=== PATIENT | female | born 1945 | race Caucasian/White ===

== ENCOUNTER → 2016-04-07 | Outpatient (CLI) | payer MEDICARE, OTHER ==
[2015-02-18 12:23] VITALS: BP 138/78
[~2016-04-07] MED LIST: CALCIUM CARBONA1 TA2 PO; PREMARIN 0.60.625 M1 PO; VITAMIN C500 MG PO
== END ==
LOC: LAB 10:24
DX: Z12.11 Encounter for screening for malignant neoplasm of colon (principal)

== ENCOUNTER → 2017-03-22 | Outpatient (CLI) | payer MEDICARE ==
[2015-02-18 12:23] VITALS: BP 138/78
[2017-03-22 10:02] LABS: EOS # 0.4 (0.04-0.40); EOS % 4.6 % (1.0-5.0); HEMATOCRIT 42.5 % (37.0-47.0); LYMPH# 1.3 (1.50-4.00); MEAN CELL VOLUME 91 fl (78-100); MEAN CORPUSCULAR HEMOGLOBIN 30 pg (27-31); MEAN CORPUSCULAR HGB CONC 33 g/dL (33-37); MEAN PLATELET VOLUME 10.6 fl (7.4-10.4); MONO # 0.9 (0.20-0.80); NEU # 6.7 (1.40-6.50); PLATELET COUNT 273 K/mm3 (130-400); RED BLOOD COUNT 4.66 M/mm3 (4.10-5.30); RED CELL DISTRIBUTION WIDTH 12.8 % (11.5-14.5); WHITE BLOOD COUNT 9.4 K/mm3 (4.8-10.8)
[2017-03-22 10:15] LABS: POTASSIUM 4.2 mmol/L (3.6-5.0)
[2017-03-22 10:29] LABS: ALBUMIN 4.1 g/dL (3.5-5.0); BUN/CREATININE RATIO 22.1 (6.0-26.0); CALCIUM 9.8 mg/dL (8.4-10.2); TOTAL BILIRUBIN 0.8 mg/dL (0.2-1.3); TOTAL PROTEIN 7.3 g/dL (6.3-8.2)
[2017-03-22 11:06] LABS: ERYTHROCYTE SEDIMENTATION RATE 11 mm/hr (0-30)
== END ==
LOC: LAB 09:49
PROVIDERS: Internal Medicine
DX: N80.8 Other endometriosis (principal); E78.2 Mixed hyperlipidemia; I34.1 Nonrheumatic mitral (valve) prolapse

== ENCOUNTER → 2017-12-31 | Outpatient (CLI) | payer MEDICARE ==
[2015-02-18 12:23] VITALS: BP 138/78
[2017-12-31 17:36] LABS: URINE APPEARANCE HAZY; URINE BILIRUBIN NEGATIVE (NEGATIVE); URINE BLOOD NEGATIVE (NEGATIVE); URINE COLOR YELLOW; URINE GLUCOSE NEGATIVE (NEGATIVE); URINE KETONE NEGATIVE (NEGATIVE); URINE LEUKOCYTE ESTERASE 1+ (NEGATIVE); URINE NITRATE NEGATIVE (NEGATIVE); URINE PROTEIN(semi-quant) TRACE mg/dL (NEGATIVE); URINE UROBILINOGEN NORMAL (NORMAL); URINE WBC 16-30 /hpf (0-3)
== END ==
LOC: LAB 09:41
PROVIDERS: Internal Medicine
DX: N39.0 Urinary tract infection, site not specified (principal)

== ENCOUNTER → 2018-04-04 | Outpatient (CLI) | payer MEDICARE ==
[2015-02-18 12:23] VITALS: BP 138/78
[2018-04-04 10:03] LABS: EOS # 0.3 (0.04-0.40); EOS % 3.8 % (1.0-5.0); HEMOGLOBIN 13.5 g/dL (12.5-16.0); LYMPH# 1.6 (1.50-4.00); MEAN CELL VOLUME 92 fl (78-100); MEAN CORPUSCULAR HEMOGLOBIN 30 pg (27-31); MEAN CORPUSCULAR HGB CONC 32 g/dL (33-37); MEAN PLATELET VOLUME 11.2 fl (7.4-10.4); MONO # 0.7 (0.20-0.80); NEU # 4.8 (1.40-6.50); PLATELET COUNT 272 K/mm3 (130-400); RED BLOOD COUNT 4.57 M/mm3 (4.10-5.30); RED CELL DISTRIBUTION WIDTH 13.3 % (11.5-14.5); WHITE BLOOD COUNT 7.4 K/mm3 (4.8-10.8)
[2018-04-04 10:08] LABS: ALBUMIN 4.3 g/dL (3.5-5.0); POTASSIUM 4.2 mmol/L (3.6-5.0); TOTAL BILIRUBIN 0.4 mg/dL (0.2-1.3); TOTAL PROTEIN 7.3 g/dL (6.3-8.2)
[2018-04-04 11:36] LABS: ERYTHROCYTE SEDIMENTATION RATE 9 mm/hr (0-30)
== END ==
LOC: LAB 09:20
PROVIDERS: Internal Medicine
DX: Z12.11 Encounter for screening for malignant neoplasm of colon (principal); I34.1 Nonrheumatic mitral (valve) prolapse; E78.2 Mixed hyperlipidemia; K90.9 Intestinal malabsorption, unspecified

== ENCOUNTER → 2018-04-30 | Outpatient (CLI) | payer MEDICARE ==
[2015-02-18 12:23] VITALS: BP 138/78
== END ==
LOC: LAB 08:36
DX: Z12.11 Encounter for screening for malignant neoplasm of colon (principal)

== ENCOUNTER → 2018-06-28 | Outpatient (CLI) | payer MEDICARE ==
[~2018-06-28] VITALS: Ht 170.2 cm; Wt 65.9 kg
[2018-06-28 14:50] LABS: EOS # 0.2 (0.04-0.40); EOS % 3.3 % (1.0-5.0); HEMATOCRIT 41.3 % (37.0-47.0); HEMOGLOBIN 13.2 g/dL (12.5-16.0); LYMPH# 1.5 (1.50-4.00); MEAN CELL VOLUME 92 fl (78-100); MEAN CORPUSCULAR HEMOGLOBIN 29 pg (27-31); MEAN CORPUSCULAR HGB CONC 32 g/dL (33-37); MEAN PLATELET VOLUME 11.1 fl (7.4-10.4); MONO # 0.5 (0.20-0.80); NEU # 4.6 (1.40-6.50); PLATELET COUNT 255 K/mm3 (130-400); RED BLOOD COUNT 4.49 M/mm3 (4.10-5.30); RED CELL DISTRIBUTION WIDTH 12.7 % (11.5-14.5); WHITE BLOOD COUNT 6.9 K/mm3 (4.8-10.8)
[2018-06-28 15:13] LABS: ALBUMIN 4.2 g/dL (3.5-5.0); AST-SGOT 21 U/L (14-36); CARBON DIOXIDE 29 mmol/L (22-30); GLUCOSE 116 mg/dL (65-105); POTASSIUM 3.9 mmol/L (3.6-5.0); SODIUM 138 mmol/L (137-145); TOTAL BILIRUBIN 0.3 mg/dL (0.2-1.3); TOTAL PROTEIN 7.2 g/dL (6.3-8.2)
[2018-06-28 15:15] VITALS: BP 138/68
[2018-06-28 15:34] LABS: URINE APPEARANCE CLEAR; URINE BILIRUBIN NEGATIVE (NEGATIVE); URINE BLOOD NEGATIVE (NEGATIVE); URINE COLOR YELLOW; URINE GLUCOSE NEGATIVE (NEGATIVE); URINE KETONE NEGATIVE (NEGATIVE); URINE LEUKOCYTE ESTERASE 1+ (NEGATIVE); URINE NITRATE NEGATIVE (NEGATIVE); URINE PROTEIN(semi-quant) NEGATIVE (NEGATIVE); URINE UROBILINOGEN NORMAL (NORMAL)
[2018-06-28 16:12] LABS: ALT/SGPT < 3 U/L (9-52)
[2018-06-28 16:22] LABS: ERYTHROCYTE SEDIMENTATION RATE 8 mm/hr (0-30)
== END ==
LOC: AMSURD 14:26
PROVIDERS: Internal Medicine
DX: I16.0 Hypertensive urgency (principal)

== ENCOUNTER → 2018-10-24 | Outpatient (CLI) | payer MEDICARE ==
[2018-06-28 15:15] VITALS: BP 138/68
== END ==
LOC: RAD 15:15
DX: S43.491A Other sprain of right shoulder joint, initial encounter (principal); M19.011 Primary osteoarthritis, right shoulder

== ENCOUNTER → 2019-04-29 | Outpatient (CLI) | payer MEDICARE ==
[2018-06-28 15:15] VITALS: BP 138/68
[2019-04-29 10:11] LABS: BASO # 0.1 (0.02-0.10); EOS # 0.5 (0.04-0.40); EOS % 5.9 % (1.0-5.0); HEMATOCRIT 42.4 % (37.0-47.0); HEMOGLOBIN 13.6 g/dL (12.5-16.0); LYMPH# 1.3 (1.50-4.00); MEAN CELL VOLUME 92 fl (78-100); MEAN CORPUSCULAR HEMOGLOBIN 29 pg (27-31); MEAN CORPUSCULAR HGB CONC 32 g/dL (33-37); MONO # 0.7 (0.20-0.80); NEU # 5.3 (1.40-6.50); PLATELET COUNT 269 K/mm3 (130-400); RED BLOOD COUNT 4.63 M/mm3 (4.10-5.30); WHITE BLOOD COUNT 7.9 K/mm3 (4.8-10.8)
[2019-04-29 10:15] LABS: ALBUMIN 4.3 g/dL (3.4-4.8); POTASSIUM 4.3 mmol/L (3.5-5.1)
[2019-04-29 10:16] LABS: CALCIUM 9.9 mg/dL (8.3-10.5)
[2019-04-29 10:18] LABS: TOTAL PROTEIN 7.1 g/dL (6.2-8.1)
[2019-04-29 10:19] LABS: TOTAL BILIRUBIN 0.5 mg/dL (0.2-1.2)
[2019-04-29 11:22] LABS: ERYTHROCYTE SEDIMENTATION RATE 7 mm/hr (0-30)
== END ==
LOC: LAB 09:48
PROVIDERS: Internal Medicine
DX: Z12.11 Encounter for screening for malignant neoplasm of colon (principal); E78.2 Mixed hyperlipidemia; K90.9 Intestinal malabsorption, unspecified; I34.1 Nonrheumatic mitral (valve) prolapse

== ENCOUNTER → 2019-05-14 | Outpatient (CLI) | payer MEDICARE ==
[2018-06-28 15:15] VITALS: BP 138/68
== END ==
LOC: LAB 10:56
DX: Z12.11 Encounter for screening for malignant neoplasm of colon (principal); E78.2 Mixed hyperlipidemia; I34.1 Nonrheumatic mitral (valve) prolapse

== ENCOUNTER → 2020-05-04 | Outpatient (CLI) | payer MEDICARE ==
[2018-06-28 15:15] VITALS: BP 138/68
[2020-05-04 09:12] LABS: EOS # 0.2 (0.04-0.40); HEMATOCRIT 42.3 % (37.0-47.0); HEMOGLOBIN 13.5 g/dL (12.5-16.0); LYMPH# 1.3 (1.50-4.00); MEAN CELL VOLUME 93 fl (78-100); MEAN CORPUSCULAR HEMOGLOBIN 30 pg (27-31); MEAN CORPUSCULAR HGB CONC 32 g/dL (33-37); MEAN PLATELET VOLUME 10.9 fl (7.4-10.4); MONO # 0.7 (0.20-0.80); NEU # 3.5 (1.40-6.50); PLATELET COUNT 259 K/mm3 (130-400); RED BLOOD COUNT 4.54 M/mm3 (4.10-5.30); RED CELL DISTRIBUTION WIDTH 12.5 % (11.5-14.5); WHITE BLOOD COUNT 5.7 K/mm3 (4.8-10.8)
[2020-05-04 09:43] LABS: ALBUMIN 4.2 g/dL (3.4-4.8); POTASSIUM 4.1 mmol/L (3.5-5.1)
[2020-05-04 09:44] LABS: CALCIUM 9.3 mg/dL (8.3-10.5)
[2020-05-04 09:45] LABS: TOTAL PROTEIN 7.1 g/dL (6.2-8.1)
[2020-05-04 09:47] LABS: TOTAL BILIRUBIN 0.5 mg/dL (0.2-1.2)
== END ==
LOC: LAB 08:49
PROVIDERS: Internal Medicine
DX: I10 Essential (primary) hypertension (principal); E78.2 Mixed hyperlipidemia; M85.80 Other specified disorders of bone density and structure, unspecified site

== ENCOUNTER → 2021-02-15 | Outpatient (CLI) | payer MEDICARE ==
[2021-02-15 09:08] LABS: BASO # 0.05 K/mm3 (0.02-0.10); EOS # 0.31 K/mm3 (0.04-0.40); EOS % 5.1 % (1.0-5.0); HEMATOCRIT 42.3 % (37.0-47.0); HEMOGLOBIN 13.5 g/dL (12.5-16.0); LYMPH# 1.49 K/mm3 (1.50-4.00); MEAN CELL VOLUME 94 fl (78-100); MEAN CORPUSCULAR HEMOGLOBIN 30 pg (27-31); MEAN CORPUSCULAR HGB CONC 32 g/dL (33-37); MEAN PLATELET VOLUME 10.9 fl (7.4-10.4); MONO # 0.61 K/mm3 (0.20-0.80); NEU # 3.56 K/mm3 (1.40-6.50); PLATELET COUNT 243 K/mm3 (130-400); RED BLOOD COUNT 4.49 M/mm3 (4.10-5.30); RED CELL DISTRIBUTION WIDTH 12.2 % (11.5-14.5)
[2021-02-15 09:16] LABS: ALBUMIN 4.1 g/dL (3.4-4.8); POTASSIUM 4.5 mmol/L (3.5-5.1)
[2021-02-15 09:17] LABS: CALCIUM 9.3 mg/dL (8.3-10.5)
[2021-02-15 09:18] LABS: TOTAL PROTEIN 6.9 g/dL (6.2-8.1)
[2021-02-15 09:20] LABS: TOTAL BILIRUBIN 0.6 mg/dL (0.2-1.2)
[2021-02-15 09:30] LABS: URINE APPEARANCE CLEAR; URINE BILIRUBIN NEGATIVE (NEGATIVE); URINE BLOOD NEGATIVE (NEGATIVE); URINE COLOR YELLOW; URINE GLUCOSE NEGATIVE (NEGATIVE); URINE KETONE NEGATIVE (NEGATIVE); URINE LEUKOCYTE ESTERASE NEGATIVE (NEGATIVE); URINE NITRATE NEGATIVE (NEGATIVE); URINE PROTEIN(semi-quant) NEGATIVE (NEGATIVE); URINE UROBILINOGEN NORMAL (NORMAL)
== END ==
LOC: LAB 08:48
PROVIDERS: Internal Medicine
DX: R10.84 Generalized abdominal pain (principal)

== ENCOUNTER → 2021-02-22 | Outpatient (CLI) | payer MEDICARE | LOC: RAD 15:01 | DX: R10.13 Epigastric pain (principal) ==

== ENCOUNTER → 2021-05-30 | Outpatient (CLI) | payer MEDICARE ==
[2021-05-30 15:40] LABS: BASO # 0.04 K/mm3 (0.02-0.10); EOS % 1.2 % (1.0-5.0); HEMATOCRIT 39.6 % (37.0-47.0); HEMOGLOBIN 12.9 g/dL (12.5-16.0); MEAN CELL VOLUME 93 fl (78-100); MEAN CORPUSCULAR HEMOGLOBIN 30 pg (27-31); MEAN CORPUSCULAR HGB CONC 33 g/dL (33-37); MEAN PLATELET VOLUME 10.6 fl (7.4-10.4); MONO # 0.63 K/mm3 (0.20-0.80); NEU # 5.74 K/mm3 (1.40-6.50); PLATELET COUNT 244 K/mm3 (130-400); RED BLOOD COUNT 4.26 M/mm3 (4.10-5.30); RED CELL DISTRIBUTION WIDTH 12.9 % (11.5-14.5); WHITE BLOOD COUNT 8.1 K/mm3 (4.8-10.8)
[2021-05-30 15:50] LABS: ALBUMIN 4.1 g/dL (3.4-4.8); POTASSIUM 4.1 mmol/L (3.5-5.1)
[2021-05-30 15:51] LABS: CALCIUM 9.5 mg/dL (8.3-10.5)
[2021-05-30 15:53] LABS: TOTAL PROTEIN 6.7 g/dL (6.2-8.1)
[2021-05-30 15:54] LABS: TOTAL BILIRUBIN 0.5 mg/dL (0.2-1.2)
[2021-05-30 15:59] LABS: MAGNESIUM 1.86 mg/dL (1.60-2.60)
== END ==
LOC: LAB 15:15
PROVIDERS: Internal Medicine
DX: I10 Essential (primary) hypertension (principal); I34.1 Nonrheumatic mitral (valve) prolapse; L73.2 Hidradenitis suppurativa; E78.2 Mixed hyperlipidemia; M85.80 Other specified disorders of bone density and structure, unspecified site

== ENCOUNTER → 2022-06-05 | Outpatient (CLI) | payer MEDICARE ==
[2022-06-05 10:44] LABS: BASO # 0.04 K/mm3 (0.02-0.10); EOS # 0.25 K/mm3 (0.04-0.40); EOS % 4.2 % (1.0-5.0); HEMATOCRIT 41.6 % (37.0-47.0); HEMOGLOBIN 13.2 g/dL (12.5-16.0); LYMPH# 1.52 K/mm3 (1.50-4.00); MEAN CELL VOLUME 94 fl (78-100); MEAN CORPUSCULAR HEMOGLOBIN 30 pg (27-31); MEAN CORPUSCULAR HGB CONC 32 g/dL (33-37); MEAN PLATELET VOLUME 10.7 fl (7.4-10.4); MONO # 0.53 K/mm3 (0.20-0.80); NEU # 3.55 K/mm3 (1.40-6.50); PLATELET COUNT 256 K/mm3 (130-400); RED BLOOD COUNT 4.41 M/mm3 (4.10-5.30); RED CELL DISTRIBUTION WIDTH 12.2 % (11.5-14.5); WHITE BLOOD COUNT 5.9 K/mm3 (4.8-10.8)
[2022-06-05 10:53] LABS: ALBUMIN 4.3 g/dL (3.4-4.8); POTASSIUM 4.3 mmol/L (3.5-5.1)
[2022-06-05 10:55] LABS: TOTAL PROTEIN 7.2 g/dL (6.2-8.1)
[2022-06-05 10:57] LABS: TOTAL BILIRUBIN 0.3 mg/dL (0.2-1.2)
[2022-06-05 11:02] LABS: MAGNESIUM 1.97 mg/dL (1.60-2.60)
[2022-06-05 11:50] LABS: ERYTHROCYTE SEDIMENTATION RATE 16 mm/hr (0-30)
== END ==
LOC: LAB 10:25
PROVIDERS: Internal Medicine
DX: Z12.11 Encounter for screening for malignant neoplasm of colon (principal); I10 Essential (primary) hypertension; E78.2 Mixed hyperlipidemia; M85.80 Other specified disorders of bone density and structure, unspecified site; I34.1 Nonrheumatic mitral (valve) prolapse; L73.2 Hidradenitis suppurativa

== ENCOUNTER → 2023-05-04 | Outpatient (CLI) | payer MEDICARE ==
[2023-05-04 14:34] LABS: URINE APPEARANCE CLOUDY (CLEAR); URINE COLOR YELLOW (YELLOW)
[2023-05-04 14:35] LABS: URINE BILIRUBIN NEGATIVE (NEGATIVE); URINE BLOOD TRACE-INTACT (NEGATIVE); URINE GLUCOSE NEGATIVE (NEGATIVE); URINE KETONE NEGATIVE (NEGATIVE); URINE LEUKOCYTE ESTERASE 2+ (NEGATIVE); URINE NITRATE NEGATIVE (NEGATIVE); URINE PROTEIN(semi-quant) 1+ (NEGATIVE); URINE WBC >50 /hpf (0-3)
== END ==
LOC: LAB 13:35
PROVIDERS: Internal Medicine
DX: N39.0 Urinary tract infection, site not specified (principal)

== ENCOUNTER → 2023-05-28 | Outpatient (CLI) | payer MEDICARE ==
[2023-05-28 14:25] LABS: PH-URINE 5.5 (5.0 - 8.0); URINE APPEARANCE CLEAR (CLEAR); URINE BILIRUBIN NEGATIVE (NEGATIVE); URINE BLOOD NEGATIVE (NEGATIVE); URINE COLOR YELLOW (YELLOW); URINE GLUCOSE NEGATIVE (NEGATIVE); URINE KETONE NEGATIVE (NEGATIVE); URINE LEUKOCYTE ESTERASE TRACE (NEGATIVE); URINE NITRATE NEGATIVE (NEGATIVE); URINE PROTEIN(semi-quant) NEGATIVE (NEGATIVE); URINE WBC 16-30 /hpf (0-3)
== END ==
LOC: LAB 13:37
PROVIDERS: Internal Medicine
DX: N39.0 Urinary tract infection, site not specified (principal)

== ENCOUNTER → 2024-06-17 | Outpatient (CLI) | payer MEDICARE ==
[2024-06-17 15:07] LABS: BASO # 0.03 K/mm3 (0.02-0.10); EOS # 0.16 K/mm3 (0.04-0.40); EOS % 1.9 % (1.0-5.0); HEMATOCRIT 42.3 % (37.0-47.0); HEMOGLOBIN 13.6 g/dL (12.5-16.0); LYMPH# 1.85 K/mm3 (1.50-4.00); MEAN CELL VOLUME 94 fl (78-100); MEAN CORPUSCULAR HEMOGLOBIN 30 pg (27-31); MEAN CORPUSCULAR HGB CONC 32 g/dL (33-37); MEAN PLATELET VOLUME 10.7 fl (7.4-10.4); MONO # 0.58 K/mm3 (0.20-0.80); NEU # 5.86 K/mm3 (1.40-6.50); PLATELET COUNT 251 K/mm3 (130-400); RED BLOOD COUNT 4.49 M/mm3 (4.10-5.30); RED CELL DISTRIBUTION WIDTH 12.3 % (11.5-14.5); WHITE BLOOD COUNT 8.5 K/mm3 (4.8-10.8)
[2024-06-17 15:10] LABS: ALBUMIN 4.4 g/dL (3.4-4.8)
[2024-06-17 15:11] LABS: CALCIUM 9.6 mg/dL (8.3-10.5)
[2024-06-17 15:12] LABS: TOTAL PROTEIN 7.5 g/dL (6.2-8.1)
[2024-06-17 15:14] LABS: TOTAL BILIRUBIN 0.4 mg/dL (0.2-1.2)
[2024-06-17 15:19] LABS: MAGNESIUM 1.87 mg/dL (1.60-2.60)
== END ==
LOC: LAB 14:44
PROVIDERS: Internal Medicine
DX: I10 Essential (primary) hypertension (principal); M85.80 Other specified disorders of bone density and structure, unspecified site; E78.2 Mixed hyperlipidemia; K90.9 Intestinal malabsorption, unspecified

== ENCOUNTER → 2024-07-21 | Outpatient (CLI) | payer MEDICARE | LOC: RAD 13:26 → MAMMO 14:00 | DX: M85.851 Other specified disorders of bone density and structure, right thigh (principal) ==